=== PATIENT | female | born 1995 | race Caucasian/White ===

== ENCOUNTER → 2017-03-14 | Outpatient (CLI) | payer BC ==
[2014-01-06 08:35] VITALS: BP 130/82
--- NOTE | 2017-03-17 16:01 | MRI ---
MRI left knee without contrast Indication: Left knee pain Comparison: None Technique: Multiplanar multi sequence MR images of the left knee were obtained without contrast. Findings: The marrow signal and bony alignment are normal, without evidence for acute fracture, stres s reaction, or subluxation. The articular surfaces are normally maintained in all 3 compartments. The menisci, cruciates, mcl, major lateral stabilizers, and extensor mechanism are intact. No joint effu therese or popliteal cyst. Impression: Unremarkable MRI of the left knee. Reported By:
== END ==
LOC: RAD 14:23
PROVIDERS: ATTEND Orthopaedic Surgery
DX: M25.552 Pain in left hip (principal); S83.282A Other tear of lateral meniscus, current injury, left knee, initial encounter; X58.XXXA Exposure to other specified factors, initial encounter
CPT/HCPCS: 73721